=== PATIENT | female | born 1985 | race Caucasian/White ===

== ENCOUNTER 2022-03-02 11:55 | Emergency (ER) | payer SELFPAY ==
[~2022-03-02] VITALS: Ht 160 cm; Wt 80.7 kg
--- NOTE | 2022-03-02 12:06 | NUR ---
Dr Carlin at the bedside for MSE.
[2022-03-02] MEDS ORDERED: ONDANSETRON 4 MG/2 ML VIAL IV ONE (12:15)
[2022-03-02] MEDS ORDERED: ACETAMINOPHEN ES 500 MG TABLET PO ONE (12:15)
[2022-03-02] MEDS ORDERED: IV NORMAL SALINE 1000 ML BAG IV ONE (12:15)
[2022-03-02] MEDS ORDERED: MORPHINE SULFATE 2 MG/1 ML DISP.SYRIN IV ONE (12:15)
[2022-03-02] MEDS ORDERED: ONDANSETRON 4 MG/2 ML VIAL ONE (12:17)
[2022-03-02] MEDS ORDERED: MORPHINE SULFATE 4 MG/1 ML DISP.SYRIN ONE (12:17)
[2022-03-02] MEDS ORDERED: ACETAMINOPHEN ES 500 MG TABLET ONE (12:17)
[2022-03-02] MEDS ORDERED: IBUP-1955 PO (12:34)
[2022-03-02] MEDS ORDERED: CYCL5TAB PO (12:34)
--- NOTE | 2022-03-02 12:44 | NUR ---
Pt back from Ct scan, states pain is decreased.
--- NOTE | 2022-03-02 13:44 | NUR ---
IV removed. Catheter intact and site benign. Pressure and 4x4 gauze applied to site. No bleeding noted.
[2022-03-02 13:45] VITALS: BP 128/70
--- NOTE | 2022-03-02 13:45 | NUR ---
Patient discharged to home in stable condition. Written and verbal after care instructions given. Patient verbalizes understanding of instructions. Stressed follow up or return to ER for worsening s/s.
== END 2022-03-02 13:45 | disposition home or self-care (01) ==
LOC: ER 11:55
DX: S16.1XXA Strain of muscle, fascia and tendon at neck level, initial encounter (principal); S46.912A Strain of unspecified muscle, fascia and tendon at shoulder and upper arm level, left arm, initial encounter; S09.90XA Unspecified injury of head, initial encounter; V43.52XA Car driver injured in collision with other type car in traffic accident, initial encounter; Y92.414 Local residential or business street as the place of occurrence of the external cause; R03.0 Elevated blood-pressure reading, without diagnosis of hypertension
CPT/HCPCS: 70450; 71045; 72125; 73030; 96361; 96374; 96375; 99285; J2270; J2405; A4663; A9150

== ENCOUNTER 2022-03-28 19:32 | Emergency (ER) | payer SELFPAY ==
[~2022-03-28] VITALS: Ht 162.6 cm; Wt 79.8 kg
[~2022-03-28 19:32] MED LIST: CYCL5TAB PO; IBUP-1955 PO
--- NOTE | 2022-03-28 20:29 | NUR ---
Dr. Ibrahim at bedside for MSE.
[2022-03-28] MEDS ORDERED: HYDROCODONE/APAP 5-325MG TABLET ONE ×2 (20:35→21:23)
[2022-03-28] MEDS ORDERED: HYDROCODONE/APAP 5-325MG TABLET PO ONE ×2 (20:45→21:30)
[2022-03-28] MEDS ORDERED: HYDR-3972 PO (20:58)
--- NOTE | 2022-03-28 21:55 | NUR ---
Pt out of ER for CT.
--- NOTE | 2022-03-28 22:06 | NUR ---
Pt back to ER from CT.
[2022-03-28 22:29] VITALS: BP 113/75
--- NOTE | 2022-03-28 22:29 | NUR ---
Patient discharged to home in stable condition. Written and verbal after care instructions given. Patient verbalizes understanding of instructions. Stressed follow up or return to ER for worsening s/s. Patient out of ER with steady gait, no acute signs of distress, VSS, all belongings taken, instructed not to drive, to be driven home by via private vehicle.
== END 2022-03-28 22:30 | disposition home or self-care (01) ==
LOC: ER 19:39
DX: S13.4XXD Sprain of ligaments of cervical spine, subsequent encounter (principal); V43.52XD Car driver injured in collision with other type car in traffic accident, subsequent encounter
CPT/HCPCS: 72125; A4663

== ENCOUNTER 2022-08-15 08:56 | Emergency (ER) | payer MEDICAID ==
[~2022-08-15] VITALS: Ht 167.6 cm; Wt 84.4 kg
[~2022-08-15 08:56] MED LIST changes: +HYDR-3972 PO
[2022-08-15] MEDS ORDERED: LIDOCAINE HCL 1% 20 ML VIAL IJ ONE (09:45)
[2022-08-15] MEDS ORDERED: LIDOCAINE HCL 1% 20 ML VIAL ONE (10:00)
[2022-08-15 10:21] LABS: *BILIRUBIN,URIN NEGATIVE (NEGATIVE); *BLOOD, URINE 1+ (NEGATIVE); *CLARITY,URINE CLEAR (CLEAR); *COLOR,URINE YELLOW (YELLOW); *KETONES,URINE NEGATIVE (NEGATIVE); *UROBILINOGEN,URINE 0.2 E.U./dl (NORMAL); LEUKOCYTE ESTERASE ,URINE NEGATIVE (NEGATIVE); NITRITE, URINE NEGATIVE (NEGATIVE); UGLUCOSE NEGATIVE (NEGATIVE)
[2022-08-15 10:22] LABS: *URINE HCG, QUAL NEG (NEGATIVE)
[2022-08-15] MEDS ORDERED: SULF1TAB48 PO (10:46)
--- NOTE | 2022-08-15 10:55 | NUR ---
PATIENT A/O X 4, PRESENTS TO THE ER C/O VAGINAL PAIN/SWELLING. CLARIFIER OPERATOR PROVIDED CHAPARONE WITH ER MD, PATIENT SEEN AND EXAMINED BY THE ER MD, PATIENT SEEN SND CLEARED FOR DISCHARGE, INSTRUCTIONS PROVIDED. PRESCRIPTION PROVIDED, EDUCATION PROVIDED ON MEDICATION ADMINISTRASTION, SIDE EFFECTS AND THE IMPORTANCE OF COMPLETING THE ABT; VERBALIZED UNDERSTANDING. PATIENT STABLE LEFT AMBULATORY.
[2022-08-15 13:42] LABS: RBC,URINE 0-3 /HPF (0-3)
[2022-08-15 13:43] LABS: BACTERIA,URINE NONE SEEN /HPF (NONE SEEN); SQUAMOUS EPITHELIAL CELL,UR MODERATE /HPF (NONE SEEN); WBC,URINE 0-3 /HPF (0-3)
== END 2022-08-15 11:00 | disposition home or self-care (01) ==
LOC: ER 09:12
DX: R22.9 Localized swelling, mass and lump, unspecified (principal)
CPT/HCPCS: 84703; A4663; J3490

== ENCOUNTER 2022-08-16 06:16 | Emergency (ER) | payer MEDICAID ==
[~2022-08-16] VITALS: Ht 160 cm; Wt 78.9 kg
[~2022-08-16 06:16] MED LIST changes: +SULF1TAB48 PO
--- NOTE | 2022-08-16 06:34 | NUR ---
A/O x4. NAD noted. Ambulatory with a steady gait.
--- NOTE | 2022-08-16 06:37 | NUR ---
Dr. Feliz at bedside. MSE in progress.
--- NOTE | 2022-08-16 07:00 | NUR ---
Report given to Armand PLAZA.
[2022-08-16] MEDS ORDERED: LIDOCAINE HCL 1% 20 ML VIAL ONE (07:13)
--- NOTE | 2022-08-16 07:35 | NUR ---
Female chief operator lock tender accompanied female patient for (Dr Feliz).
--- NOTE | 2022-08-16 07:52 | NUR ---
PT WAS D/C'd TO HOME. D/C INSTRUCTIONS GIVEN TO THE PT.
[2022-08-16 07:53] VITALS: BP 127/77
== END 2022-08-16 11:56 | disposition home or self-care (01) ==
LOC: ER 06:18
DX: N81.10 Cystocele, unspecified (principal)
CPT/HCPCS: A4663; J3490